=== PATIENT | female | born 1990 | race Caucasian/White ===

== ENCOUNTER → 2018-03-01 | Emergency (ER) | payer OTHER ==
[~2018-03-01] VITALS: Ht 157.5 cm; Wt 65.8 kg
== END | disposition left against medical advice (07) ==
LOC: ER 16:37
DX: Z53.21 Procedure and treatment not carried out due to patient leaving prior to being seen by health care provider (principal)

== ENCOUNTER 2018-09-21 18:51 | Emergency (ER) | payer OTHER ==
[~2018-09-21] VITALS: Ht 157.5 cm; Wt 68.0 kg
[2018-09-21] MEDS ORDERED: KETO10TA2 (20:23)
== END 2018-09-21 22:46 | disposition home or self-care (01) ==
LOC: ER 18:51
DX: R00.2 Palpitations (principal)